=== PATIENT | male | born 1940 | race Caucasian/White ===

== ENCOUNTER 2017-08-25 12:12 | Outpatient (CLI) | payer MEDICARE ==
--- NOTE | 2017-08-25 14:27 | RAD ---
PA AND LATERAL CHEST: Date: 08-25-17 History: Dyspnea. 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 Cardiac silhouette and pulmonary vasculature are wit hin normal limits. Thoracic aorta is ectatic. Lungs are clear. Osseous structures are intact. IMPRESSION: No acute cardiopulmonary process. POS: [facility]
== END 2017-08-25 12:13 | disposition home or self-care (01) ==
LOC: RAD 12:12
PROVIDERS: ATTEND Internal Medicine Pulmonary Disease
DX: R06.00 Dyspnea, unspecified (principal)
CPT/HCPCS: 71020

== ENCOUNTER 2019-12-30 08:47 | Outpatient (CLI) | payer MEDICARE ==
[~2019-12-30 08:47] MED LIST: Iopamidol-370 76% 500 ML 1 ML ONE
--- NOTE | 2019-12-30 12:21 | CT ---
CT OF THE ABDOMEN AND PELVIS WITH CONTRAST: Date: 12/30/2019 COMPARISON: None. HISTORY: Epigastric abdominal pain. Portal hypertension and history of cirrhosis. TECHNIQUE: Multiple contiguous axial images were obtained in a CT of the abdomen and pelvis with contrast. PO co ntrast was administered. Sagittal and coronal reformats were performed. FINDINGS: The gallbladder has been removed. There are hypodensities in the left kidney noted up to 3.1 cm in si ze which likely represent cysts. The liver has a smooth contour. No focal liver lesions are seen. The right kidney, adrenal glands, spleen, and pancreas are unremarkable. No free air, free fluid, or stranding changes are seen in the abdomen or pelvis. There are a few scat tered diverticula in the colon. The large and small bowel are normal in caliber. No abdominal or pelv ic lymphadenopathy seen. Atherosclerotic calcifications are seen in the aorta. Degenerative changes are seen in the spine. Visualized inferior thorax unremarkable. There is a 1.5 c m fat-containing umbilical hernia. IMPRESSION: 1. No evidence of acute intra-abdominal/pelvic abnormality. 2. Left renal cysts. 3. Diverticulosis. POS: [facility]
== END 2019-12-30 08:48 | disposition home or self-care (01) ==
LOC: BICCT 08:47
PROVIDERS: ATTEND Internal Medicine Gastroenterology
DX: K74.60 Unspecified cirrhosis of liver (principal); K76.6 Portal hypertension; R10.13 Epigastric pain; N28.1 Cyst of kidney, acquired
CPT/HCPCS: 74177; 82565; Q9967

== ENCOUNTER 2022-11-20 13:29 | Outpatient (CLI) | payer OTHER | END 2022-11-20 13:30 | disposition home or self-care (01) | LOC: SCSMRI 13:29 | PROVIDERS: ATTEND Specialist | DX: M47.22 Other spondylosis with radiculopathy, cervical region (principal); M50.11 Cervical disc disorder with radiculopathy, high cervical region; M50.121 Cervical disc disorder at C4-C5 level with radiculopathy; M50.33 Other cervical disc degeneration, cervicothoracic region | CPT/HCPCS: 72141 ==